=== PATIENT | male | born 1980 | race African-American/Black ===

== ENCOUNTER 2017-03-27 08:36 | Inpatient (IN) | payer OTHER ==
[2017-03-27 09:25] VITALS: BMI 26.6
--- NOTE | 2017-03-27 12:34 | HP ---
Admission [facility] Chief Complaint: REHAB TX FOR DRUGS AND ALCOHOL DEPENDENCE Allergies/Adverse Reactions: Allergies Allergy/AdvReac Type Severity Reaction Status Date / Time No Known Allergies Allergy Verified 03/27/17 10:28 History of Present Illness: 36 Y/O AA/MALE WITH A HX OF ALCOHOL AND COCAINE DEPENDENCE SEEKING REHAB TX Exam Limitations: No Limitations - Ebola screening Have you traveled outside of the country in the last 21 days: No Have you had contact with anyone from an Ebola affected area: No Have you been sick,other than usual withdrawal symptoms: No Do you have a fever: No - Review of Systems Constitutional: No Symptoms Reported EENT: reports: No Symptoms Reported Respiratory: reports: No Symptoms reported Cardiac: reports: Lightheadedness GI: reports: No Symptoms Reported : reports: No Symptoms Reported Musculoskeletal: reports: No Symptoms Reported Integumentary: reports: No Symptoms Reported Neuro: reports: Seizure, Dizziness Endocrine: reports: No Symptoms Reported Hematology: reports: Anemia Psychiatric: reports: Orientated x3 Other Systems: Reviewed and Negative Patient History - Patient Medical History Hx Anemia: Yes Hx Asthma: No Hx Chronic Obstructive Pulmonary Disease (COPD): No Hx Cardiac Disorders: No Hx Hypertension: Yes (ON NORVASC 5 MG PO DAILY) Hx Hypercholesterolemia: No HX Cerebrovascular Accident: No Hx Seizures: Yes ( ON KEPPRA 500 MG PO BID) Hx Diabetes: No Hx Gastrointestinal Disorders: No Hx Genitourinary Disorders: No Hx Sexually Transmitted Disorders: No Hx Renal Disease (ESRD): No Hx Thyroid Disease: No Hx Human Immunodeficiency Virus (HIV): No (DENIES) Hx Hepatitis C: No (DENIES) Hx Depression: No Hx Suicide Attempt: No (DENIES) Hx Bipolar Disorder: No Hx Schizophrenia: No - Patient Surgical History Past Surgical History: No Hx Neurologic Surgery: No Hx Cataract Extraction: No Hx Cardiac Surgery: No Hx Lung Surgery: No Hx Breast Surgery: No Hx Breast Biopsy: No Hx Abdominal Surgery: No Hx Appendectomy: No Hx Cholecystectomy: No Hx Genitourinary Surgery: No Hx Orthopedic Surgery: No Anesthesia Reaction: No - PPD History Previous Implant?: Yes Documented Results: Negative w/o proof Implanted On Prior [facility] Admission?: No PPD to be Administered?: Yes - Reproductive History Patient is a Female of Child Bearing Age (11 -55 yrs old): No (MALE) Patient : (N/A) - Smoking Cessation Smoking history: Current every day smoker Have you smoked in the past 12 months: Yes Aproximately how many cigarettes per day: 22 Hx Chewing Tobacco Use: No Initiated information on smoking cessation: Yes 'Breaking Loose' booklet given: 03/27/17 - Substance & Tx. History Hx Alcohol Use: Yes (COGNAC) Hx Substance Use: Yes (COCAINE/MARIJUANA/PERCOCETS) Substance Use Type: Alcohol, Cocaine, Marijuana, Opiates Hx Substance Use Treatment: Yes (LAST [place] AT [facility] [place] 09/2016) - Substances Abused Alcohol Route: Oral Frequency: Daily Amount used: 2 PTS Age of first use: 14 Date of Last Use: 03/26/17 Cocaine Route: Inhalation Frequency: 3-6 times per week (3 X /WEEK) Amount used: 2 BAGS Age of first use: 16 Date of Last Use: 03/26/17 Marijuana/Hashish Route: Smoking Frequency: Daily Amount used: 15 GRAMS Age of first use: 13 Date of Last Use: 03/26/17 Family Disease History - Family Disease History Family History: Denies Admission Physical Exam [facility] - Vital Signs Vital Signs: Vital Signs - 24 hr 03/27/17 09:22 Temperature 98.1 F Pulse Rate 107 H Respiratory 18 Rate Blood Pressure 170/125 - Physical General Appearance: Yes: No Apparent Distress HEENTM: Yes: EOMI, Normocephalic, HORTENSIA, Pharynx Normal Respiratory: Yes: Chest Non-Tender, Lungs Clear, Normal Breath Sounds, No Respiratory Distress Neck: Yes: Supple, Trachea in good position Breast: Yes: Breast Exam Deferred Cardiology: Yes: Regular Rhythm, Regular Rate, S1, S2 Abdominal: Yes: Normal Bowel Sounds, Non Tender, Soft Genitourinary: Yes: Other (N/C) Back: Yes: Within Normal Limits Musculoskeletal: Yes: full range of Motion, Gait Steady Extremities: Yes: Normal Range of Motion, Non-Tender 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 - Diagnostic (1) Alcohol dependence with uncomplicated withdrawal Current Visit: Yes Status: Chronic (2) Cocaine dependence, uncomplicated Current Visit: Yes Status: Chronic (3) Hypertension Current Visit: Yes Status: Chronic Qualifiers: Hypertension type: essential hypertension Qualified Code(s): I10 - Essential (primary) hypertension Comment: ON NORVASC 5 MG PO DAILY (4) History of anemia Current Visit: Yes Status: Suspected (5) Hx of seizure disorder Current Visit: Yes Status: Chronic Comment: ON KEPPRA 500 PO BID Cleared for Admission [facility] - Detox or Rehab Claeared for Rehab Admission: Yes S Breath Alcohol Content Breath Alcohol Content: 0 Urine Drug Screen - Results Drug Screen Negative: No Urine Drug Screen Results: MARIO-Cocaine
[2017-03-27] MEDS ORDERED: guaiFENesin/D-METHORPHAN HB 10 ML UNIT-DOSE CUPS PO PRN (12:51)
[2017-03-27] MEDS ORDERED: NICOTINE POLACRILEX 4 MG GUM BC PRN (12:51)
[2017-03-27] MEDS ORDERED: MENTHOL/PHENOL 1 EACH UD MM PRN (12:51)
[2017-03-27] MEDS ORDERED: hydrOXYzine PAMOATE 50 MG CAPSULE (FP) PO PRN (12:51)
[2017-03-27] MEDS ORDERED: P-EPHED 60MG/TRIPROLIDI 2.5MG TABLET PO PRN (12:51)
[2017-03-27] MEDS ORDERED: MAG HYDROX/AL HYDROX/SIMETH 30 ML UNIT-DOSE CUP PO PRN (12:51)
[2017-03-27] MEDS ORDERED: MAGNESIUM CITRATE 300 ML BOTTLE PO PRN (12:51)
[2017-03-27] MEDS ORDERED: diphenhydrAMINE HCL 50 MG CAPSULE PO PRN (12:51)
[2017-03-27] MEDS ORDERED: IBUPROFEN 400 MG TABLET (FP) PO PRN (12:51)
[2017-03-27] MEDS ORDERED: MAGNESIUM HYDROX 2400MG/30ML ORAL SUSPENSION 30 ML CUP PO PRN (12:51)
[2017-03-27] MEDS ORDERED: ACETAMINOPHEN 325 MG TABLET (FP) PO PRN (12:51)
[2017-03-27] MEDS ORDERED: LOPERAMIDE HCL 2 MG CAPSULE PO PRN (12:51)
[2017-03-27] MEDS ORDERED: NICOTINE 21 MG/24 HOURS TOPICAL PATCH TD SCH (14:15)
[2017-03-27] MEDS ORDERED: TUBERCULIN PPD 5 TU/0.1ML VIAL ID ONE (15:15)
[2017-03-27 15:28] VITALS: BP 141/94; PULSE 85; TEMP 98.3
[2017-03-27 17:16] LABS: MCH 27.9 pg (25.7-33.7); MCHC 33.1 g/dl (32.0-35.9); MEAN CELL VOLUME 84.1 fl (80-96); MEAN PLT VOLUME 9.1 fl (7.5-11.1); RDW 15.6 % (11.9-15.9); WHITE BLOOD COUNT 10.6 K/mm3 (4.0-10.0)
[2017-03-27 17:38] LABS: ALBUMIN 3.6 g/dl (3.4-5.0); ANION GAP 8 (8-16); CALCIUM 8.9 mg/dL (8.5-10.1); CO2 30 mmol/L (21-32); CREATININE 0.8 mg/dL (0.7-1.3); GLUCOSE,RANDOM 103 mg/dL (74-106); SGOT/AST 18 U/L (15-37); SGPT/ALT 49 U/L (12-78); TOT PROT 7.5 g/dl (6.4-8.2)
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
[2017-03-27 17:43] LABS: ALK PHOS 83 U/L (45-117); BILIRUBIN,TOTAL 0.5 mg/dL (0.2-1.0)
[2017-03-27 17:48] LABS: SICKLE CELL SCREEN NEGATIVE (NEGATIVE)
[2017-03-27 18:26] LABS: PLATELET ESTIMATE ADEQUATE (NORMAL)
[2017-03-27 18:27] LABS: PLATELET COMMENT2 MOD PLT CLUMPING; PLATELET COMMENT3 UNABLE TO ENUMERATE
[2017-03-27] MEDS ORDERED: levETIRAcetam 500 MG TABLET (FP) PO SCH (22:00)
[2017-03-27] MEDS ORDERED: THIAMINE HCL 100 MG TABLET (FP) PO SCH (22:00)
[2017-03-28] MEDS ORDERED: PRENATAL VITAMINS W/ FOLIC ACID TABLET (FP) PO SCH (10:00)
[2017-03-28] MEDS ORDERED: amLODIPine BESYLATE 5 MG TABLET (FP) PO SCH (10:00)
== END 2017-03-27 17:20 | disposition left against medical advice (07) | DRG 770 ==
LOC: YASAS 08:36 → Y3W 13:37 → Y5N 14:27
PROVIDERS: ADMIT Psychiatry & Neurology Psychiatry; ATTEND Psychiatry & Neurology Psychiatry
PROC: HZ42ZZZ Group Counseling for Substance Abuse Treatment, Cognitive-Behavioral (ICD-10-PCS; principal; 2017-03-27)
DX: F10.20 Alcohol dependence, uncomplicated (principal); F14.20 Cocaine dependence, uncomplicated; I10 Essential (primary) hypertension; Z86.2 Personal history of diseases of the blood and blood-forming organs and certain disorders involving the immune mechanism; Z86.69 Personal history of other diseases of the nervous system and sense organs
CPT/HCPCS: 36415; 80053; 85027; 85660; 86593